=== PATIENT | female | born 1975 | race Caucasian/White ===

== ENCOUNTER 2017-02-15 15:58 | Inpatient (IN) | payer OTHER ==
[~2017-02-15] VITALS: Ht 172.7 cm; Wt 67.1 kg
--- NOTE | ~2017-02-15 | OP ---
Record Of Operation [facility] [address] [place]. [address] NAME: NUPUR MARIN : 73 STATUS : DIS IN PAT#: [id number] AGE: 41 ADM/REG DATE : 02/15/17 MR#: [id number] REPORT SERV DATE: 02/22/17 DICTATED BY: JOSE COFFEY DATE: 02/22/17 REPORT STATUS : Draft TRANSCRIBED BY: CHRISTINA DATE: 02/22/17 DATE OF PROCEDURE: 02/15/2017 PREPROCEDURE DIAGNOSIS: 5 cm left radial artery occlusion. POSTPROCEDURE DIAGNOSIS: 5 cm left radial artery occlusion. PROCEDURE PERFORMED: Exploration left wrist with open thrombectomy, left radial artery. ANESTHESIA: General. COMPLICATIONS: None. INDICATION FOR PROCEDURE: Secondary to this very pleasant young female presenting with evidence of left hand pain associated with radial artery occlusion from a radial art line. This is associated with the former surgery for a few days prior. The patient's main complaints were paresthesias of the thenar eminence and wrist pain, moderate to severe. Recommendations were made for exploratory surgery with thrombectomy of the affected artery and sikhism of flow to the hand. DETAILS OF PROCEDURE: The patient was brought to the operating room and placed in supine position. Prepped in routine sterile fashion, attention to the left wrist. After anesthesia was induced, 1% lidocaine was used to anesthetize the skin directly over top of the radial artery for approximately 3 cm. A 2 cm incision was then made directly over top the radial artery in a linear fashion. Dissection proceeded down to this arterial segment carefully avoiding all other structures. The radial artery was loop controlled and then dissected free for a total of 2 cm. A transverse incision was then made on the artery. There appeared to be a hemorrhage within the wall of the radial artery. The lumen was clearly identified and a 3 Shari was then passed and approximately 5000 units of heparin was given and allowed to circulate. The radial artery was then thrombectomized and a total of 5 cm of thrombus was removed proximally and distally from this arterial segment. There was arterial bleeding both proximally and distally. Both pulsatile and using small clamps, I controlled the arterial flow. The anastomosis was then formed with a 7-0 Prolene in multiple interrupted sutures to reconstruct the radial artery. Flow was established and clearly identified by Doppler assessment. Hemostasis was obtained with Surgicel and this was adequate prior to closure. The skin and deep tissues were then closed with Vicryl, Monocryl for the skin. Steri-Strip dressings were then applied, and the patient tolerated the procedure well and was transferred to recovery in stable condition. SAPNA/CHRISTINA Jose Coffey M.D. Record Of [address] [address] NAME: NUPUR MARIN : 73 STATUS : DIS IN PAT#: [id number] AGE: 41 ADM/REG DATE : 02/15/17 MR#: [id number] REPORT SERV DATE: 02/22/17 DICTATED BY: JOSE COFFEY DATE: 02/22/17 REPORT STATUS : Draft TRANSCRIBED BY: CHRISTINA DATE: 02/22/17 / [id number] CC: Sanchez Boles M.D.
[~2017-02-15 15:58] MED LIST: ACET500CAP PO; ADDERALL30 MG PO; ASABAYER PO; ASAEC PO; B121000P IM; BUDESONIDE NAS; COUMADIN10 MG PO; ELIQUIS 5 MG TAB5 MG PO; EZFE 200200 MG PO; FERROUS SULF325 M1 PO; GLUCPH PO; LOP25 PO; LORTAB 5 PO; MIRALAX POWDER1 PKT PO; MULTIPLE VIT PO; NORCO1 TAB PO; NORV10 PO; NXL9 PO; PLAVIX PO; PRIN20 PO; SPIRO25 PO; SYN075 PO; SYNTHROID175 MCG PO; TRESIBA FL100 UNIT/1 SC; TRULICITY1.5 MG/0.5 SQ; ZYRTEC ALLGY10 MG PO; [UNRECOGNIZED DRUG - OTHER] PO
[2017-02-15 17:49] LABS: BASOPHILS 0.5 %; BASOPHILS ABSOLUTE 0.04 10/3/uL (0.0-0.16); EOSINOPHILS 3.4 %; EOSINOPHILS ABSOLUTE 0.29 10/3/uL (0.0-0.53); HEMATOCRIT 27.3 % (36.0-48.0); IMMATURE GRANULOCYTES 0.2 %; IMMATURE GRANULOCYTES ABSOLUTE 0.02 10/3/uL (0.0-0.11); LYMPHOCYTES 23.4 %; LYMPHOCYTES ABSOLUTE 1.99 10/3/uL (0.67-4.30); MEAN CORPUS HGB CONC 29.3 g/dL (32.0-36.0); MEAN CORPUSCULAR VOLUME 61.5 fL (80-100); MEAN PLATELET VOLUME 10.2 fL (9.2-13.0); MONOCYTES 6.7 %; MONOCYTES ABSOLUTE 0.57 10/3/uL (0.21-1.20); NEUTROPHILS 65.8 %; NEUTROPHILS ABSOLUTE 5.61 10/3/uL (2.02-8.40); RBC DISTRIBUTION WIDTH 17.8 % (12.0-16.0); RED CELL COUNT 4.44 10/6/uL (4.0-5.6); WHITE BLOOD CELLS 8.5 10/3/uL (4.5-10.5)
[2017-02-15 17:51] LABS: MANUAL DIFF NO %; PLATELET COUNT 279 10/3/uL (150-400)
[2017-02-15 18:02] LABS: ANISOCYTOSIS 1+ (5-10/OIF) (0-5/OIF); ELLIPTOCYTES 1+ (3-10/OIF) (0-2/OIF); HYPOCHROMIA 3+ (>30/OIF) (0-2/OIF); PLATELET ESTIMATE ADQ (ADEQUATE); POIKILOCYTOSIS 1+ (5-10/OIF) (0-5/OIF); SCHISTOCYTES OCC (0-2/OIF)
[2017-02-15 18:03] LABS: TEARDROP SHAPED RBCS OCC (0-2/OIF)
[2017-02-15 23:43] LABS: INTERNATIONAL NORMAL RATI 1.1 UNITS (-); PROTIME (NOT ORD) 14.5 SEC (12.0-14.5)
[2017-02-16] MEDS ORDERED: ZOFRAN4 PO (11:54)
[2017-02-16] MEDS ORDERED: PERCOCET 7.5/321 TAB PO (11:56)
== END 2017-02-16 13:06 | disposition home or self-care (01) | DRG 252 ==
LOC: ENRESERVTM → ENRESERVDT → ENRESERV → SDC 15:58 → 2SO 21:08
PROVIDERS: Specialist
PROC: 03CC0ZZ Extirpation of Matter from Left Radial Artery, Open Approach (ICD-10-PCS; principal; 2017-02-15 17:15)
DX: T82.868A Thrombosis due to vascular prosthetic devices, implants and grafts, initial encounter (principal); N18.6 End stage renal disease; I12.0 Hypertensive chronic kidney disease with stage 5 chronic kidney disease or end stage renal disease; Z99.2 Dependence on renal dialysis
CPT/HCPCS: 34111; 82962; 84703; 85025; 85610; 88304; A9270-GY; C1757; C1769; C1894; J0690; J1170; J2175; J2250; J2270; J2405; J3010; Q9967